=== PATIENT | female | born 1935 | race African-American/Black ===

== ENCOUNTER 2017-02-07 15:18 | Emergency (ER) | payer MEDICARE, MEDICAID ==
[~2017-02-07] VITALS: Ht 165.1 cm; Wt 83.0 kg
[~2017-02-07 15:18] MED LIST: ADALAT CC60 MG OR; ALDACTONE25 MG OR; ALDACTONE25 MG PO; ALLOPURINOL100 MG PO; AMIODARONE200 MG OR; ASA LOW DOSE81 MG OR; BABY ASPIRIN81 MG OR; BAYER ASPIRIN E81 MG PO; BAYER LOW81 MG OR; BAYER LOW81 MG PO; BENAZEPRIL20 M1 PO; CLONIDINE0.1 MG PO; CLONIDINE0.3 MG OR; CORDARONE200 MG PO; COREG CR80 MG OR; COREG25 MG OR; COREG25 MG PO; COUMADIN3 MG PO; COUMADIN5 MG OR; CRESTOR10 MG PO; CRESTOR40 MG PO; DIGITEK0.25 MG OR; DIGOXIN0.125 MG PO; DILTIAZEM240 M1 OR; DIOVAN320 MG OR; DOCUSATE SOD100 M2 PO; ENOXAPARIN40 MG/0.1 SC; FLUZONE SPLT1 M1 IM; FOLIC ACID1 MG PO; FUROSEMIDE40 MG PO; GABAPENTIN100 MG PO; GLYBURID MCR1.5 MG OR; GLYNASE1.5 MG; GLYNASE1.5 MG PO; HYDRALAZINE HCL50 MG PO; HYDRALAZINE25 MG PO; HYDRALAZINE50 MG PO; IMDUR60 MG OR; KLOR-CON M2020 MEQ OR; LANOXIN0.125 MG OR; LASIX40 MG OR; LASIX80 MG OR; LASIX80 MG PO; LORTAB 7.5 PO; LORTAB 7.57.5 MG PO; LOTENSIN20 MG OR; METFORMIN500 M1 OR; METOLAZONE2.5 MG OR; METOLAZONE2.5 MG PO; NIASPAN500 MG OR; OMEPRAZOLE20 M2 PO; PHOSLO667 M1 PO; PLAVIX75 MG OR; PRAVACHOL80 MG OR; PRAVACHOL80 MG PO; PRAVASTATIN40 MG OR; PRAVASTATIN80 MG OR; PREVACID30 M2 OR; PREVACID30 M3 OR; PRILOSEC20 MG OR; PRILOSEC20 MG PO; PRILOSEC20 MG/CAP PO; SERTRALINE25 MG OR; SYMBICORT 80-4.5MCG IN; TRADJENTA5 MG PO; TRAMADOL HCL50 MG PO; VICODIN1 TAB PO; VITAMIN D32000 UNIT PO; VITAMIN D400 UNI1; WARFARIN3 MG PO; WARFARIN5 MG OR; XANAX0.25 MG OR; ZAROXOLYN2.5 MG OR; ZEMPLAR1 MCG PO; ZOLPIDEM TARTRA10 MG PO
[2017-02-07 15:56] LABS: HEMATOCRIT 43.4 % (37.0-47.0); HEMOGLOBIN 13.8 g/dl (12.0-16.0); IMMATURE GRANULOCYTES 0.3 % (0.0-1.0); MEAN CELL VOLUME 106.6 fL CALC (80.0-100.0); MEAN CORPUSCULAR HGB 33.9 pG CALC (26.0-32.0); MEAN CORPUSCULAR HGB CONC 31.8 g/L CALC (32.0-36.0); NEUT# 6.42 thou/uL (2.00-7.15); RED BLOOD COUNT 4.07 mill/uL (4.20-5.60); RED CELL DISTRI WIDTH 14.4 % (11.5-15.5)
[2017-02-07 16:19] LABS: INTERNATIONAL NORMALIZED RATIO 3.2 RATIO (0.7-1.3); PROTHROMBIN TIME 37.5 SECONDS (9.0-12.5)
[2017-02-07 16:20] LABS: ALBUMIN 4.3 g/dL (3.2-5.0); BILIRUBIN, TOTAL 0.8 mg/dL (0.0-1.4); CALCIUM 9.7 mg/dL (8.4-10.2); TOTAL PROTEIN 8.7 g/dL (6.3-8.2)
[2017-02-07 16:22] LABS: POTASSIUM 5.2 mmol/l (3.5-5.1)
[2017-02-07 18:57] VITALS: BP 153/74
== END 2017-02-07 18:57 ==
LOC: ED 15:18
PROVIDERS: Emergency Medicine
DX: I12.9 Hypertensive chronic kidney disease with stage 1 through stage 4 chronic kidney disease, or unspecified chronic kidney disease (principal); N18.9 Chronic kidney disease, unspecified; R07.9 Chest pain, unspecified; R94.31 Abnormal electrocardiogram [ECG] [EKG]; I25.2 Old myocardial infarction; I48.91 Unspecified atrial fibrillation; Z95.810 Presence of automatic (implantable) cardiac defibrillator

== ENCOUNTER 2017-07-11 08:25 | Emergency (ER) | payer MEDICARE, MEDICAID ==
[~2017-07-11] VITALS: Ht 165.1 cm; Wt 75.0 kg
[2017-07-11 09:36] LABS: HEMATOCRIT 49.4 % (37.0-47.0); HEMOGLOBIN 14.8 g/dl (12.0-16.0); IMMATURE GRANULOCYTES 0.3 % (0.0-1.0); MEAN CELL VOLUME 103.3 fL CALC (80.0-100.0); NEUT# 11.41 thou/uL (2.00-7.15); RED BLOOD COUNT 4.78 mill/uL (4.20-5.60); RED CELL DISTRI WIDTH 17.9 % (11.5-15.5)
[2017-07-11 09:52] LABS: ALBUMIN 4.6 g/dL (3.2-5.0); BILIRUBIN, TOTAL 1.6 mg/dL (0.0-1.4); CALCIUM 10.7 mg/dL (8.4-10.2); CREATININE 1.6 mg/dL (0.5-1.0); TOTAL PROTEIN 8.9 g/dL (6.3-8.2)
[2017-07-11] MEDS ORDERED: SENNA8.6 MG PO (09:52)
[2017-07-11] MEDS ORDERED: PHOSLO667 M1 PO (09:53)
[2017-07-11 09:55] LABS: INTERNATIONAL NORMALIZED RATIO 2.5 RATIO (0.7-1.3); PROTHROMBIN TIME 28.4 SECONDS (9.0-12.5)
[2017-07-11] MEDS ORDERED: PENTOXIFYLLI400 M1 PO (09:55)
[2017-07-11 13:39] VITALS: BP 177/80
== END 2017-07-11 13:58 | disposition short-term general hospital (02) ==
LOC: ED 08:25
PROVIDERS: Emergency Medicine
DX: I74.3 Embolism and thrombosis of arteries of the lower extremities (principal); M79.604 Pain in right leg; Z95.9 Presence of cardiac and vascular implant and graft, unspecified; Z95.810 Presence of automatic (implantable) cardiac defibrillator; I10 Essential (primary) hypertension; I48.91 Unspecified atrial fibrillation; Z79.01 Long term (current) use of anticoagulants; Z79.82 Long term (current) use of aspirin; R00.0 Tachycardia, unspecified; I76 Septic arterial embolism

== ENCOUNTER 2017-09-14 12:28 | Inpatient (IN) | payer MEDICARE, MEDICAID ==
[~2017-09-14] VITALS: Ht 165.1 cm; Wt 71.2 kg
[2017-09-14] VITALS (12 sets, daily range): BP systolic 103–160; BP diastolic 65–95
[~2017-09-14 12:28] MED LIST changes: +PENTOXIFYLLI400 M1 PO; +SENNA8.6 MG PO
[2017-09-14 13:14] LABS: HEMATOCRIT 38.1 % (37.0-47.0); HEMOGLOBIN 11.8 g/dl (12.0-16.0); IMMATURE GRANULOCYTES 0.6 % (0.0-1.0); MEAN CELL VOLUME 106.4 fL CALC (80.0-100.0); NEUT# 16.74 thou/uL (2.00-7.15); RED BLOOD COUNT 3.58 mill/uL (4.20-5.60); RED CELL DISTRI WIDTH 15.1 % (11.5-15.5)
[2017-09-14 13:31] LABS: ALBUMIN 3.9 g/dL (3.2-5.0); BILIRUBIN, TOTAL 1.9 mg/dL (0.0-1.4); CALCIUM 9.7 mg/dL (8.4-10.2); POTASSIUM 4.2 mmol/l (3.5-5.1); TOTAL PROTEIN 7.8 g/dL (6.3-8.2)
[2017-09-14 13:40] LABS: INTERNATIONAL NORMALIZED RATIO 1.4 RATIO (0.7-1.3); PROTHROMBIN TIME 15.6 SECONDS (9.0-12.5)
[2017-09-14] MEDS ORDERED: BISCOLAX10 MG (16:57)
[2017-09-14] MEDS ORDERED: BUMETANIDE0.5 MG PO (16:58)
[2017-09-14] MEDS ORDERED: WARFARIN4 MG PO (16:59)
[2017-09-14] MEDS ORDERED: CLONIDINE0.1 MG PO (16:59)
[2017-09-14] MEDS ORDERED: PEPCID20 MG PO (17:00)
[2017-09-14] MEDS ORDERED: HYDROCHLOROT25 MG PO (17:00)
[2017-09-14] MEDS ORDERED: NORCO1 TA1 PO (17:01)
[2017-09-14] MEDS ORDERED: KLOR-CON M2020 MEQ PO (17:01)
[2017-09-14] MEDS ORDERED: LISINOPRIL20 M1 PO (17:01)
[2017-09-14] MEDS ORDERED: MULTIVITAMI1 PO (17:02)
[2017-09-14] MEDS ORDERED: MIRTAZAPINE15 MG PO (17:02)
[2017-09-14] MEDS ORDERED: TYLENOL325 MG PO (17:03)
[2017-09-14] MEDS ORDERED: OSCAL 500/1 TAB PO (17:03)
[2017-09-14] MEDS ORDERED: SANTYL250 UNIT/G (17:03)
[2017-09-14 19:55] LABS: URINE BILIRUBIN - DIPSTICK NEGATIVE (NEGATIVE); URINE BLOOD DIPSTICK TRACE-INTACT (NEGATIVE); URINE CLARITY CLEAR; URINE COLOR YELLOW; URINE GLUCOSE - DIPSTICK NEGATIVE (NEGATIVE); URINE KETONE NEGATIVE (NEGATIVE); URINE LEUK ESTERASE NEGATIVE (NEGATIVE); URINE NITRITE - DIPSTICK NEGATIVE (Negative); URINE PROTEIN - DIPSTICK NEGATIVE (NEG-TRACE); URINE SPECIFIC GRAVITY 1.025; URINE UROBILINOGEN - DIPSTICK 0.2 E.U./dL (0.2)
[2017-09-15] VITALS (12 sets, daily range): BP systolic 92–116; BP diastolic 55–78
[2017-09-15 05:46] LABS: HEMATOCRIT 33.5 % (37.0-47.0); HEMOGLOBIN 10.3 g/dl (12.0-16.0); IMMATURE GRANULOCYTES 0.4 % (0.0-1.0); MEAN CELL VOLUME 107.7 fL CALC (80.0-100.0); MEAN CORPUSCULAR HGB 33.1 pG CALC (26.0-32.0); MEAN CORPUSCULAR HGB CONC 30.7 g/L CALC (32.0-36.0); NEUT# 11.7 thou/uL (2.00-7.15); RED BLOOD COUNT 3.11 mill/uL (4.20-5.60); RED CELL DISTRI WIDTH 15.1 % (11.5-15.5)
[2017-09-15 05:57] LABS: CALCIUM 8.6 mg/dL (8.4-10.2); CREATININE 1.6 mg/dL (0.5-1.0); POTASSIUM 3.8 mmol/l (3.5-5.1)
[2017-09-15 06:00] LABS: INTERNATIONAL NORMALIZED RATIO 1.5 RATIO (0.7-1.3); PROTHROMBIN TIME 16.2 SECONDS (9.0-12.5)
[2017-09-16] VITALS (11 sets, daily range): BP systolic 84–136; BP diastolic 63–84
[2017-09-16 05:52] LABS: INTERNATIONAL NORMALIZED RATIO 1.3 RATIO (0.7-1.3); PROTHROMBIN TIME 14.4 SECONDS (9.0-12.5)
[2017-09-16 06:48] LABS: HEMATOCRIT 32.1 % (37.0-47.0); HEMOGLOBIN 9.5 g/dl (12.0-16.0); IMMATURE GRANULOCYTES 0.4 % (0.0-1.0); MEAN CELL VOLUME 111.1 fL CALC (80.0-100.0); MEAN CORPUSCULAR HGB 32.9 pG CALC (26.0-32.0); MEAN CORPUSCULAR HGB CONC 29.6 g/L CALC (32.0-36.0); NEUT# 8.57 thou/uL (2.00-7.15); RED BLOOD COUNT 2.89 mill/uL (4.20-5.60); RED CELL DISTRI WIDTH 15.1 % (11.5-15.5)
[2017-09-16 06:54] LABS: CALCIUM 8.4 mg/dL (8.4-10.2); CREATININE 1.6 mg/dL (0.5-1.0); POTASSIUM 4.4 mmol/l (3.5-5.1)
[2017-09-17 06:04] LABS: HEMATOCRIT 32.5 % (37.0-47.0); HEMOGLOBIN 9.6 g/dl (12.0-16.0); MEAN CELL VOLUME 110.9 fL CALC (80.0-100.0); MEAN CORPUSCULAR HGB 32.8 pG CALC (26.0-32.0); MEAN CORPUSCULAR HGB CONC 29.5 g/L CALC (32.0-36.0); RED BLOOD COUNT 2.93 mill/uL (4.20-5.60); RED CELL DISTRI WIDTH 14.8 % (11.5-15.5)
[2017-09-17 06:22] VITALS: BP 128/65
[2017-09-17 06:28] LABS: INTERNATIONAL NORMALIZED RATIO 1.4 RATIO (0.7-1.3); PROTHROMBIN TIME 15.6 SECONDS (9.0-12.5)
[2017-09-17 06:34] LABS: CALCIUM 8.2 mg/dL (8.4-10.2); CREATININE 1.6 mg/dL (0.5-1.0); POTASSIUM 4.2 mmol/l (3.5-5.1)
[2017-09-17 11:00] VITALS: BP 107/60
[2017-09-17 16:00] VITALS: BP 116/81
[2017-09-17 19:40] VITALS: BP 126/80
[2017-09-18 00:30] VITALS: BP 120/71
[2017-09-18 04:11] VITALS: BP 137/76
[2017-09-18 07:58] LABS: HEMATOCRIT 30.5 % (37.0-47.0); HEMOGLOBIN 9.1 g/dl (12.0-16.0); MEAN CELL VOLUME 110.9 fL CALC (80.0-100.0); MEAN CORPUSCULAR HGB 33.1 pG CALC (26.0-32.0); MEAN CORPUSCULAR HGB CONC 29.8 g/L CALC (32.0-36.0); RED BLOOD COUNT 2.75 mill/uL (4.20-5.60); RED CELL DISTRI WIDTH 14.7 % (11.5-15.5)
[2017-09-18 08:06] LABS: INTERNATIONAL NORMALIZED RATIO 1.7 RATIO (0.7-1.3); PROTHROMBIN TIME 18.9 SECONDS (9.0-12.5)
[2017-09-18 08:23] LABS: CALCIUM 8.3 mg/dL (8.4-10.2); CREATININE 1.5 mg/dL (0.5-1.0); POTASSIUM 4.5 mmol/l (3.5-5.1)
[2017-09-18 08:30] VITALS: BP 125/90
[2017-09-18 15:39] VITALS: BP 136/79
[2017-09-18 20:13] VITALS: BP 130/72
[2017-09-18 23:00] VITALS: BP 128/79
[2017-09-19 04:01] VITALS: BP 127/50
[2017-09-19 05:32] LABS: HEMATOCRIT 30.3 % (37.0-47.0); HEMOGLOBIN 8.7 g/dl (12.0-16.0); IMMATURE GRANULOCYTES 0.3 % (0.0-1.0); MEAN CELL VOLUME 112.6 fL CALC (80.0-100.0); MEAN CORPUSCULAR HGB 32.3 pG CALC (26.0-32.0); MEAN CORPUSCULAR HGB CONC 28.7 g/L CALC (32.0-36.0); NEUT# 5.8 thou/uL (2.00-7.15); RED BLOOD COUNT 2.69 mill/uL (4.20-5.60); RED CELL DISTRI WIDTH 14.6 % (11.5-15.5)
[2017-09-19 05:47] LABS: CALCIUM 8.1 mg/dL (8.4-10.2); CREATININE 1.3 mg/dL (0.5-1.0); POTASSIUM 4.6 mmol/l (3.5-5.1)
[2017-09-19 05:51] LABS: INTERNATIONAL NORMALIZED RATIO 1.9 RATIO (0.7-1.3); PROTHROMBIN TIME 21.4 SECONDS (9.0-12.5)
[2017-09-19 07:20] VITALS: BP 134/82
[2017-09-19 16:12] VITALS: BP 119/58
[2017-09-19 20:00] VITALS: BP 152/89
[2017-09-20] VITALS: BP 131/84
[2017-09-20 04:00] VITALS: BP 131/84
[2017-09-20 06:05] LABS: HEMATOCRIT 31.4 % (37.0-47.0); HEMOGLOBIN 9.1 g/dl (12.0-16.0); IMMATURE GRANULOCYTES 0.5 % (0.0-1.0); MEAN CELL VOLUME 112.5 fL CALC (80.0-100.0); MEAN CORPUSCULAR HGB 32.6 pG CALC (26.0-32.0); NEUT# 6.1 thou/uL (2.00-7.15); RED BLOOD COUNT 2.79 mill/uL (4.20-5.60); RED CELL DISTRI WIDTH 14.6 % (11.5-15.5)
[2017-09-20 06:09] LABS: INTERNATIONAL NORMALIZED RATIO 2.1 RATIO (0.7-1.3); PROTHROMBIN TIME 24.7 SECONDS (9.0-12.5)
[2017-09-20 06:14] LABS: CREATININE 1.5 mg/dL (0.5-1.0); POTASSIUM 4.9 mmol/l (3.5-5.1)
[2017-09-20 08:45] VITALS: BP 152/96
[2017-09-20 11:42] VITALS: BP 144/75
[2017-09-20] MEDS ORDERED: IPRATROPIU0.5 MG/3 M IN (12:33)
[2017-09-20] MEDS ORDERED: NORCO1 TA1 PO (12:33)
[2017-09-20] MEDS ORDERED: CORDARONE/200 MG/TAB PO (12:33)
[2017-09-20] MEDS ORDERED: ROCEPHIN 2 GM2 GM IM (12:39)
== END 2017-09-20 15:22 | DRG 564 ==
LOC: ED 12:28 → ED-I 13:50 → ED 14:14 → ICU 14:15 → ED-I 14:15 → ICU 15:29 → MS2 09-16 14:42
PROVIDERS: Emergency Medicine; Internal Medicine; ADMIT Internal Medicine; ATTEND Internal Medicine
PROC: 0H9HXZZ Drainage of Right Upper Leg Skin, External Approach (ICD-10-PCS; principal; 2017-09-15)
PROC: 02HV33Z Insertion of Infusion Device into Superior Vena Cava, Percutaneous Approach (ICD-10-PCS; 2017-09-16)
PROC: B518ZZA Fluoroscopy of Superior Vena Cava, Guidance (ICD-10-PCS; 2017-09-16)
DX: T87.43 Infection of amputation stump, right lower extremity (principal); A41.9 Sepsis, unspecified organism; E11.40 Type 2 diabetes mellitus with diabetic neuropathy, unspecified; I12.9 Hypertensive chronic kidney disease with stage 1 through stage 4 chronic kidney disease, or unspecified chronic kidney disease; E11.22 Type 2 diabetes mellitus with diabetic chronic kidney disease; N18.3 Chronic kidney disease, stage 3 (moderate); I48.92 Unspecified atrial flutter; E11.51 Type 2 diabetes mellitus with diabetic peripheral angiopathy without gangrene; L02.415 Cutaneous abscess of right lower limb; J44.9 Chronic obstructive pulmonary disease, unspecified; I48.2 Chronic atrial fibrillation; E78.5 Hyperlipidemia, unspecified; F32.9 Major depressive disorder, single episode, unspecified; M10.9 Gout, unspecified; I25.10 Atherosclerotic heart disease of native coronary artery without angina pectoris; D63.8 Anemia in other chronic diseases classified elsewhere; I25.2 Old myocardial infarction; B96.4 Proteus (mirabilis) (morganii) as the cause of diseases classified elsewhere; Y83.5 Amputation of limb(s) as the cause of abnormal reaction of the patient, or of later complication, without mention of misadventure at the time of the procedure; Z79.01 Long term (current) use of anticoagulants; Z86.73 Personal history of transient ischemic attack (TIA), and cerebral infarction without residual deficits; Z87.891 Personal history of nicotine dependence; Z95.5 Presence of coronary angioplasty implant and graft; Z95.810 Presence of automatic (implantable) cardiac defibrillator; Z79.82 Long term (current) use of aspirin
CPT/HCPCS: J1650; J3370